=== PATIENT | female | born 1950 | race Caucasian/White ===

== ENCOUNTER → 2023-08-06 08:39 | Outpatient (REF) | payer MEDICARE, OTHER, SELFPAY | LOC: HWRAD 08:39 | PROVIDERS: ATTENDING PHYSICIAN Obstetrics & Gynecology; FAMILY PHYSICIAN Family Medicine; REFERRING PHYSICIAN Anesthesiology Pain Medicine | DX: Z78.0 Asymptomatic menopausal state (principal); Z12.31 Encounter for screening mammogram for malignant neoplasm of breast | CPT/HCPCS: 77063; 77067; 77080 ==

== ENCOUNTER 2023-10-04 15:45 | Emergency (ER) | payer MEDICARE, OTHER, SELFPAY ==
[2023-10-04 15:54] VITALS: BP 148/95
[2023-10-04 16:17] LABS: % Basophils 0.9 % (0-2); % Eosinophils 4.1 % (0-6); % Immature Granulocytes 0.5 % (0-0.5); % Lymphocytes 23.4 % (20.5-51.1); % Monocytes 6.3 % (1.7-9.3); % Neutrophils 64.8 % (42.2-75.2); Absolute Basophils 0.1 10^3/uL (0-0.2); Absolute Eosinophils 0.3 10^3/uL (0-0.7); Absolute Lymphocytes 1.9 10^3/uL (1.2-3.4); Absolute Monocytes 0.5 10^3/uL (0.1-0.6); Absolute Neutrophils 5.2 10^3/uL (1.4-6.5); Hematocrit 39.8 % (37.0-47.0); Hemoglobin 13.1 g/dL (12.0-16.0); Mean Corp Hgb Conc. 32.9 g/dL (33.0-37.0); Mean Corpuscular Hgb 29.6 pg (27.0-31.0); Mean Corpuscular Volume 89.8 fL (81.0-99.0); Mean Platelet Volume 9.5 fL (7.4-10.4); Nucleated Red Blood Cells % 0 %; Platelet Count 247 10^3/uL (130-400); Red Blood Cell Count 4.43 10^6/uL (4.20-5.40); Red Cell Dist. Width 13.5 % (11.5-14.5)
[2023-10-04 16:41] LABS: Troponin I < 0.012 ng/ml
[2023-10-04 16:44] LABS: ALT (SGPT) 42 U/L (0-35); AST (SGOT) 32 U/L (14-36); Albumin 4.1 g/dl (3.5-5.0); Alkaline Phosphatase 97 U/L (38-126); Blood Urea Nitrogen 19 mg/dl (7-17); Carbon Dioxide 24 mmol/L (22-30); Chloride 108 mmol/L (98-107); Glucose 104 mg/dl (70-99); Potassium 4.8 mmol/L (3.5-5.1); Sodium 136 mmol/L (135-145); Total Bilirubin 0.3 mg/dl (0.2-1.3); Total Protein 6.6 g/dl (6.3-8.2); eGFR 59.49
[2023-10-04 19:03] LABS: NT-proBNP 143 pg/ml
--- NOTE | 2023-10-04 19:16 | ED.GENMED ---
History of Present Illness
General
Chief Complaint: Weakness
Source: patient, spouse and family
Exam Limitations: none
Time Seen by Provider: 10/04/23 18:14
Nursing documentation reviewed up to this point in time: agreed with
Travel History
Have you had any contact with someone who has COVID-19?: No
Do you have any symptoms of coronavirus? Fever > 100 degrees, chills, cough, shortness of breath, sore throat, loss of taste or smell, muscle aches, or headache?: No
History of Present Illness
History of Present Illness:
73-year-old female with past ministry of hypertension hyperlipidemia, frequent urinary tract infections spinal stimulator implant 6 weeks ago presenting to the emergency department today with concerns of generalized weakness fatigue mainly with
exertion over the past 6 weeks. She claims that after walking roughly 100 m she has to take a rest secondary to generalized weakness. She denies any specific focal numbness or weakness chest pain shortness breath palpitations or recent illness.
No changes in medications.
Review of Systems
Review of Systems
Allergies reviewed?: Yes
All Other Systems: ROS reviewed and negative except as documented in HPI and ROS
Phy Exam
Physical Exam
Physical Exam:
GENERAL: Alert , in no apparent distress
EYE: pupils equal and reactive
NECK: Supple, no significant adenopathy.
ENT: o/p clr, mmm.
CARDIAC: Regular rate and rhythm .
LUNGS: Clear breath sounds bilaterally, no acute respiratory distress, no wheezes/rales/rhonchi
ABDOMEN: Soft, without focal tenderness, no r/g, no cvat
NEUROLOGICAL: Alert and oriented, no focal neuro deficits
SKIN: Warm and dry, skin intact.
MUSCULOSKELETAL: No edema, well perfused.
PSYCH: Normal and appropriate interaction.
Course
Orders/Labs/Results
Orders:
Orders
10/04/23 15:58
Electrocardiogram (*1) Urgent
Reason for Study: Fatigue / Weakness
EKG- Treatment ONCE
10/04/23 16:04
Comprehensive Metabolic Panel Urgent
NT-proBNP Urgent
Comment: ADD ON
TSH Reflex To Free T4 Urgent
Comment: ADD ON
Troponin I Urgent
10/04/23 16:05
Complete Blood Count/With Diff Urgent
10/04/23 18:18
Add On- LAB Urgent
Tests Added?: BNP
10/04/23 19:00
Add On- LAB Urgent
Tests Added?: tsh free t4
10/04/23 19:13
Urinalysis Reflex To Culture Urgent
Date Specimen was Collected: 10/04/23
Time Specimen was Collected: 19:11
Abnormal Lab Results
10/04/23 10/04/23
16:04 16:05
MCHC 32.9 L g/dL
(33.0-37.0)
Chloride 108 H mmol/L
(98-107)
BUN 19 H mg/dl
(7-17)
Glucose 104 H mg/dl
(70-99)
ALT 42 H U/L
(0-35)
10/04/23 16:05
10/04/23 16:04
Vital Signs
Initial and Last Documented VS:
Initial Vital Signs
Temp Pulse Resp BP Pulse Ox
98.1 F 75 18 148/95 95
10/04/23 15:54 10/04/23 15:54 10/04/23 15:54 10/04/23 15:54 10/04/23 15:54
Last Documented Vital Signs
Temp Pulse Resp BP Pulse Ox
98.1 F 70 20 138/71 96
10/04/23 15:54 10/04/23 19:39 10/04/23 19:39 10/04/23 19:39 10/04/23 19:39
MDM/Problems Addressed
MDM/Problems Addressed:
73-year-old female past medical history hypertension hyperlipidemia. Here patient is very well-appearing in no distress very slightly elevated blood pressure otherwise vital signs are normal. Patient with clear lungs normal heart sounds labs
without emergent findings troponin negative EKG normal BNP negative no leg swelling normal urinalysis. No specific explanation for patient's fatigue. Patient vies for close cardiac evaluation concerning she had does have some degree of dyspnea on
exertion. Strict return precautions were discussed.
*Critical Care Note
Total Time (30-74mins, 75-104mins- exclusive of procedures): Not Applicable
ED Attending Note
-
Portions of this chart may have been created with voice recognition software.� Occasional wrong word or��sound alike� substitutions may have occurred due to the inherent limitations of voice recognition software.
Discharge Plan
Departure
Patient Disposition: Home (Routine Discharge)
Date of Disposition: 10/04/23
Time of Disposition: 21:05
Patient with high blood pressure during this ER visit?: No
Condition: Good
Covid-19: Not Applicable
Discharge Problem:
Generalized weakness
Instructions: Generalized Weakness (DC), *CBC Heart Failure Instructions
Referrals:
Nj Sandra MD [Family Provider] -
Activity Restrictions/Additional Instructions:
You came to the emergency department today with concerns of generalized weakness fatigue. Here your vital signs were normal your workup was very reassuring you had a normal cardiac evaluation normal urinalysis. It is very important follow-up
closely with cardiology. Return to the emergency department for any worsening, new or concerning symptoms.
Interventions
Interventions:
ED- Fall Risk Assessment Last Done: 10/04/23 19:21
*ED COVID-19 Vaccine History Last Done: 10/04/23 15:57
ED- Cardiac Assessment Last Done: 10/04/23 19:21
ED- Neurological Assessment Last Done: 10/04/23 19:21
ED- Pulmonary Assessment Last Done: 10/04/23 19:21
Discharge Date and Time
Print Language: FRENCH
[2023-10-04 19:39] VITALS: BP 138/71
[2023-10-04 20:02] LABS: Urine Albumin Negative (Neg - Trace); Urine Bilirubin Negative (Negative); Urine Character Clear (Clear); Urine Color Yellow; Urine Glucose Negative (Negative); Urine Ketone Negative (Negative); Urine Leukocyte Negative (Negative); Urine Nitrite Negative (Negative); Urine Occult Blood Negative (Negative); Urine Urobilinogen Negative (Neg - 1+)
[2023-10-04 20:06] LABS: TSH Reflex To Free T4 1.94 uIU/ml (0.47-4.68)
[2023-10-04 21:13] VITALS: BP 128/85
== END 2023-10-04 21:14 | disposition home or self-care (01) ==
LOC: EMR 15:45
PROVIDERS: Emergency Medicine; Physician Assistant; EMERGENCY PHYSICIAN Student in an Organized Health Care Education/Training Program; FAMILY PHYSICIAN Family Medicine
DX: I10 Essential (primary) hypertension (principal); E78.5 Hyperlipidemia, unspecified; Z87.440 Personal history of urinary (tract) infections; R53.1 Weakness
CPT/HCPCS: 99284; 80053; 81003; 83880; 84443; 84484; 85025; 93005

== ENCOUNTER 2023-10-15 08:40 | Day surgery (SDC) | payer MEDICARE, OTHER, SELFPAY ==
[2023-10-15] VITALS (16 sets, daily range): BP systolic 88–135; BP diastolic 53–85; BMI 33.7
[2023-10-15] MEDS: NSS 259 ML IV (10:01)
[2023-10-15] MEDS: LOW STRENGTH ASPIRIN 81 MG PO (10:14)
--- NOTE | 2023-10-15 11:37 | ITS.CL.CATH ---
[facility] - Catheterization
Cardiac Catheterization
Procedure Report:
CARDIAC CATHETERIZATION REPORT
Date of Procedure: 10/15/2019
Referring: MIS Gomez
Indication: Shortness of breath, chest pressure.
PROCEDURE:
1. Right heart catheterization.
2. Left heart catheterization.
3. Coronary angiography.
ACCESS:
6 Scottish right radial artery.
5 Scottish right antecubital vein.
CATHETERS:
1. 5 Scottish balloon wedge.
2. 5 Scottish JL 3.5.
3. 5 Scottish JR4.
HEMODYNAMIC DATA
Weight (kg): 86.3
AO (s/d/x mmHg): 123/71/90
LV (s/x mmHg): 127/16
PCWP (a/v/x mmHg): 33//19
PA (s/d/x mmHg): 35//
RV (s/x mmHg): 35/14
RA (a/v/x mmHg): 16/14
SVC SvO2 (%): 71.2
PA SvO2 (%): 73.1
SaO2 (%): 97.1
Hbg (g/dL): 13.9
CO (L/min): 3.53
CI (L/min/m2): 1.86
TPG (mmHg): 4
PVR (Morillo Units): 1.13
SVR (dynes*seconds*cm^-5): 1722
AVO2 Diff (Volume %): 4.54
AV gradient (x, mmHg): None.
AV area (cm2): Normal.
LEFT VENTRICULOGRAPHY: Not obtained.
CORONARY ANGIOGRAPHY
Dominance: Right.
Left Main: Normal size, bifurcating vessel. There is no coronary artery disease.
LAD: Normal size vessel giving rise to 2 significant diagonals. There are minor luminal irregularities in the proximal vessel.
Ramus: Congenitally absent.
Circumflex: Normal size vessel giving rise to 2 obtuse marginals. There is no coronary artery disease.
RCA: Normal size, dominant vessel. There is no coronary artery disease.
INTERVENTIONS
None.
Closure Device: Vascular band for the right radial artery, manual pressure for the right antecubital vein.
Radiation dose (mGy): 220.52
DAP (cm2.Gy): 22.5464
Fluoroscopy time (minutes): 4.7
Sedation time (minutes): 31
CONCLUSIONS:
1. Right dominant circulation with minor luminal irregularities in the proximal LAD.
2. Mildly elevated filling pressures (LVEDP = 16 mmHg, PCWP = 19 mmHg at 86.3 kg).
3. Mildly depressed cardiac index (1.86 L/min/m�) with preserved AV O2 difference (4.54 volume %).
RECOMMENDATIONS:
1. Expectant management after cardiac catheterization via right radial/antecubital approach.
2. Limited weight bearing on the right wrist for one week.
3. Start furosemide 20 mg p.o. daily for mild filling pressure elevation.
4. Consider other possibilities for shortness of breath including primary pulmonary disease.
5. Stable for outpatient cardiology follow-up.
Copy to: MIS Gomez, Waldemar Chahal M.D., Ph.D., Nj Sandra M.D.
Randal Major DO, FACC, FACP
[2023-10-15] MEDS: LASIX 20 MG IV (11:48)
== END 2023-10-15 14:47 | disposition home or self-care (01) ==
LOC: CATH 08:40
PROVIDERS: ATTENDING PHYSICIAN Internal Medicine Cardiovascular Disease; FAMILY PHYSICIAN Family Medicine; OTHER PHYSICIAN Internal Medicine
DX: R06.02 Shortness of breath (principal); R07.89 Other chest pain; Z79.82 Long term (current) use of aspirin; I10 Essential (primary) hypertension; I48.0 Paroxysmal atrial fibrillation
CPT/HCPCS: 93460; C1894; Q9967

== ENCOUNTER → 2023-11-27 09:44 | Outpatient (REF) | payer MEDICARE, OTHER, SELFPAY | LOC: HWRAD 09:44 | PROVIDERS: ATTENDING PHYSICIAN Nurse Practitioner; FAMILY PHYSICIAN Family Medicine; REFERRING PHYSICIAN Internal Medicine Critical Care Medicine | DX: R35.0 Frequency of micturition (principal); R31.0 Gross hematuria; R06.09 Other forms of dyspnea | CPT/HCPCS: 71046; 76770; 76856 ==

== ENCOUNTER → 2024-04-28 11:43 | Outpatient (REF) | payer MEDICARE, OTHER, SELFPAY | LOC: HWRAD 11:43 | PROVIDERS: ATTENDING PHYSICIAN Internal Medicine Rheumatology; FAMILY PHYSICIAN Family Medicine; REFERRING PHYSICIAN Anesthesiology Pain Medicine | DX: M54.50 Low back pain, unspecified (principal); M81.0 Age-related osteoporosis without current pathological fracture | CPT/HCPCS: 72070 ==

== ENCOUNTER 2024-04-30 13:16 | Emergency (ER) | payer MEDICARE, OTHER, SELFPAY ==
[2024-04-30 13:19] VITALS: BP 118/75; BMI 31.7
[2024-04-30 13:21] VITALS: BP 118/75
--- NOTE | 2024-04-30 13:25 | ED.GENMED ---
History of Present Illness
<Zulema Pearson PA-C - Last Filed: 04/30/24 18:28>
General
Chief Complaint: Fainting Sensation
Source: patient
Exam Limitations: none
Time Seen by Provider: 04/30/24 13:24
Nursing documentation reviewed up to this point in time: agreed with
History of Present Illness
History of Present Illness:
74-year-old female with a past medical history of hypertension, hyperlipidemia, presents to the emergency department today with concerns of presyncopal episode. Patient reports that she went to [place] today after a doctor's appointment and was
eating breakfast when she felt the sudden urge to have diarrhea. She felt some mild lower abdominal pain at this time. She also started to feel lightheaded, dizzy, and hot. She ran to the bathroom and states that she does not have diarrhea at
that time but felt that she might pass out. She remained sitting in the bathroom and eventually her symptoms passed, this episode lasted around 1 minute. She had was another episode at home which she did have diarrhea at the time. She notes that
she has been having intermittent bouts of explosive diarrhea and is been seeing Dr. Norris from gastroenterology for this. Patient did not fall or hit her head. She currently is asymptomatic and denies dizziness, lightheadedness, headaches,
shortness of breath, chest pain. Patient denies palpitations. Patient denies history of cardiac disease other than sinus tach patient currently takes lisinopril and metoprolol for her blood pressure and follows with Dr. Chahal. Patient reports that
she has been doing intermittent fasting loss weight recently and believes that she may be on too many blood pressure medications.
Review of Systems
<Zulema Pearson PA-C - Last Filed: 04/30/24 18:28>
Review of Systems
All Other Systems: ROS reviewed and negative except as documented in HPI and ROS
Phy Exam
<Zulema Pearson PA-C - Last Filed: 04/30/24 18:28>
Physical Exam
Physical Exam:
General: Patient is well appearing and in no acute distress; non-toxic
Skin: Warm and dry, no rashes or lesions
Head: Normocephalic, atraumatic
Eyes: Sclera non-icteric. EOMs intact. PERRLA.
Cardiac: Regular rate and rhythm, no murmurs
Peripheral Vascular: No lower extremity swelling or edema
Pulm: Normal respiratory effort, no wheezes, rales, or rhonchi
Abdomen: No abdominal tenderness to palpation
Neuro: CN II-XII intact, no focal neurologic deficits.
Psychiatric: Appropriate mood and affect.
Course
<Zulema Pearson PA-C - Last Filed: 04/30/24 18:28>
Orders/Labs/Results
Orders:
Orders
04/30/24 13:17
Electrocardiogram (*1) Urgent
Reason for Study: Syncope
04/30/24 13:18
EKG- Treatment ONCE
04/30/24 13:26
Basic Metabolic Panel Urgent
Complete Blood Count/With Diff Urgent
Troponin I Urgent
04/30/24 14:03
D-Dimer Urgent
04/30/24 14:43
CT Chest Pe Study Urgent
Comment:
Reason For Exam: syncope
Abnormal Lab Results
04/30/24 04/30/24
13:26 14:03
WBC 13.3 H 10^3/uL
(4.8-10.8)
Abs Immat Gran (auto) 0.1 H 10^3/uL
(0-0.05)
Absolute Neuts (auto) 11.1 H 10^3/uL
(1.4-6.5)
Immature Gran % 0.6 H %
(0-0.5)
Neutrophils % 83.4 H %
(42.2-75.2)
Lymphocytes % 11.4 L %
(20.5-51.1)
D-Dimer 2.78 H ug/mlFEU
(0.00-0.50)
Chloride 108 H mmol/L
(98-107)
Carbon Dioxide 21 L mmol/L
(22-30)
Glucose 141 H mg/dl
(70-99)
04/30/24 13:26
04/30/24 13:26
Vital Signs
Initial and Last Documented VS:
Initial Vital Signs
Temp Pulse Resp BP Pulse Ox
98.1 F 77 15 118/75 98
04/30/24 13:19 04/30/24 13:19 04/30/24 13:19 04/30/24 13:19 04/30/24 13:19
Last Documented Vital Signs
Temp Pulse Resp BP Pulse Ox
98.1 F 72 22 121/68 97
04/30/24 13:19 04/30/24 17:30 04/30/24 17:30 04/30/24 17:10 04/30/24 17:30
<Ruddy Son MD - Last Filed: 04/30/24 15:10>
Orders/Labs/Results
Orders:
Orders
04/30/24 13:17
Electrocardiogram (*1) Urgent
Reason for Study: Syncope
04/30/24 13:18
EKG- Treatment ONCE
04/30/24 13:26
Basic Metabolic Panel Urgent
Complete Blood Count/With Diff Urgent
Troponin I Urgent
04/30/24 14:03
D-Dimer Urgent
04/30/24 14:43
CT Chest Pe Study Urgent
Comment:
Reason For Exam: syncope
Abnormal Lab Results
04/30/24 04/30/24
13:26 14:03
WBC 13.3 H 10^3/uL
(4.8-10.8)
Abs Immat Gran (auto) 0.1 H 10^3/uL
(0-0.05)
Absolute Neuts (auto) 11.1 H 10^3/uL
(1.4-6.5)
Immature Gran % 0.6 H %
(0-0.5)
Neutrophils % 83.4 H %
(42.2-75.2)
Lymphocytes % 11.4 L %
(20.5-51.1)
D-Dimer 2.78 H ug/mlFEU
(0.00-0.50)
Chloride 108 H mmol/L
(98-107)
Carbon Dioxide 21 L mmol/L
(22-30)
Glucose 141 H mg/dl
(70-99)
04/30/24 13:26
04/30/24 13:26
Vital Signs
Initial and Last Documented VS:
Initial Vital Signs
Temp Pulse Resp BP Pulse Ox
98.1 F 77 15 118/75 98
04/30/24 13:19 04/30/24 13:19 04/30/24 13:19 04/30/24 13:19 04/30/24 13:19
Last Documented Vital Signs
Temp Pulse Resp BP Pulse Ox
98.1 F 72 22 121/68 97
04/30/24 13:19 04/30/24 17:30 04/30/24 17:30 04/30/24 17:10 04/30/24 17:30
Sharynlt;Zulema Pearson PA-C - Last Filed: 04/30/24 18:28>
MDM/Problems Addressed
Differential Diagnosis Includes:
Vasovagal syncope, arrhythmia, PE, medication side effect
MDM/Problems Addressed:
74-year-old female with past medical history of hypertension, hyperlipidemia presents to the emergency department today with concerns of 2 presyncopal episodes. Each episode lasted around 1 minute and was associated with urge to defecate. Currently,
she is asymptomatic. Of note, she takes both metoprolol and lisinopril and has lost weight recently they are intermittent fasting and feels that she may be on too many medications now that she lost weight. Patient is currently asymptomatic.
Physical exam, she is well-appearing, afebrile, no acute distress, her lungs are clear to auscultation. Her CBC is here appear unremarkable. Of note, patient had recent cardiac cath persistent shortness of breath she had a few months ago and it
was suggested to explore other causes of this such as PE. Because of this, we did add on a D-dimer which was elevated, patient was sent for CT of the chest which is negative for PE, likely represents vasovagal presyncope, advised patient to
follow-up with her docent coordinator for possible medication adjustment. Patient stable for discharge.
Chronic conditions affecting care:
hypertension, hyperlipidemia
<Zulema Pearson PA-C - Last Filed: 04/30/24 18:28>
*Pulse Oximetry
Patient hypoxic: no
*Critical Care Note
Total Time (30-74mins, 75-104mins- exclusive of procedures): Not Applicable
Data Reviewed
Review of Other/Old Records Reveals: Records (Reviewed discharge packet and summary from Nutrition Worker report of 10/15/2023, reviewed ER physician documentation from 10/04/2023)
Source: patient and records
Prescriptions/Medications Considered But Not Given:
n/a
Further Testing Considered But Not Given:
n/a
<Zulema Pearson PA-C - Last Filed: 04/30/24 18:28>
Patient Management
Escalation/DeEscalation of care consider admission/obs:
Admit not indicated, patient stable for discharge, patient persistently asymptomatic and vital signs remained stable throughout ED stay
<Zulema Pearson PA-C - Last Filed: 04/30/24 18:28>
Update Note
Update Note:
3:35 pm-- Update patient reports that she ambulated to the bathroom without any difficultly, still asymptomatic; patient updated on d-dimer results, pt awaiting CT scan.
ED Attending Note
<Zulema Pearson PA-C - Last Filed: 04/30/24 18:28>
-
Portions of this chart may have been created with voice recognition software.� Occasional wrong word or��sound alike� substitutions may have occurred due to the inherent limitations of voice recognition software.
<Ruddy Son MD - Last Filed: 04/30/24 15:10>
ED Attending Note
Patient seen and examined by attending physician: Yes
ED Attending Note:
I have seen and evaluated the patient with a [id number] encounter. I have spoken to the advance practicer provider and involved in the medical history, the physical exam, medical decision making.
Evaluation and management service: agree unless noted differently below.
Results interpretation: agree unless noted differently below.
Focused HPI: 74-year-old female with past medical history as noted presents to the ER for evaluation after syncopal event. Patient reports that for the past few months that she has been having episodes of urgent tenesmus associated with diarrhea;
has been following with Dr. Norris. Patient that this morning she was sitting on the couch when she suddenly felt that she had the urge to have a bowel movement. She went to the bathroom and when she got to the bathroom she began feeling
lightheaded and nauseous, sweaty. She says that she had brief loss of consciousness. She did not actually have a bowel movement at that time but then about an hour later she did have a large volume bowel movement. She called her primary and made
an appointment to be evaluated and had visit in the office; she was told she likely had a vasovagal episode. After the doctor's appointment she went to lunch at [employer] and while she was in the middle of eating she began to feel the urge to go to
the bathroom once again and this time was quickly associated with lightheaded sensation. Her helped her to get up and go to the bathroom and when she got to the door the bathroom she felt extremely lightheaded and passed out.
caught her and she did not have any fall or secondary trauma. EMS called to the scene. Apparently on EMS arrival she was mildly hypotensive to 81/65 but after some fluids this normalized. She now feels fine she has no symptoms here in the ER.
She denies any associated chest pain, palpitations. She has had some occasional shortness of breath particularly when walking up the stairs or going for a short walk�this has been going on for the past few months and in fact led to a cardiac
catheterization in September that was essentially unremarkable. She has no shortness of breath at present moment in the ER. She denies any abdominal pain or flank pain. She denies any headache. She denies any other complaints.
Physical exam: Awake alert not in distress. Vital signs normal. No cardiac rubs gallops or murmurs appreciated. Lungs clear to auscultation bilaterally. Abdomen soft and nontender with no palpable masses. No gross neurologic deficits. Head is
atraumatic.
Medical Decision Makin-year-old female presents to the emergency room after syncopal event; had 2 episodes this morning each 1 was associated with defecation/bowel movement. Vitals and exam as above. Will check labs including a CBC and a CMP.
EKG reviewed shows sinus rhythm with no AV block, no Brugada, no QT prolongation. Will check a D-dimer given her dyspnea over the past few months and now 2 episodes of syncope. Will monitor on telemetry reassess after the above; certainly by
history this sounds like vasovagal syncope associate with her bowel movements.
Labs reviewed: CBC shows slight leukocytosis at 13 unclear acute clinical significance; no signs or symptoms of infection. CMP no clinically significant abnormalities. Troponin undetectable. Her D-dimer was slightly positive will send for CTA to
rule out PE. Continue to monitor.
Discharge Plan
Departure
Patient Disposition: Home (Routine Discharge)
Date of Disposition: 04/30/24
Time of Disposition: 17:32
Patient with high blood pressure during this ER visit?: No
Condition: Good
Discharge Problem:
Pre-syncope
Instructions: Near Fainting (DC), Diarrhea, Adult ED
Prescriptions:
No Action
metoprolol succinate 25 mg Tablet Extended Release 24 Hr
25 mg PO DAILY
aspirin 81 mg Tablet,Chewable
81 mg PO DAILY
buspirone 7.5 mg Tablet
7.5 mg PO BID
topiramate 25 mg Tablet
25 mg PO BID
Sleep Aid (doxylamine) 25 mg Tablet
25 mg PO HS
lisinopril 5 mg Tablet
5 mg PO HS
rosuvastatin 20 mg Tablet
20 mg PO MOTUTHFR
cholecalciferol (vitamin D3) [Vitamin D3] 25 mcg (1,000 unit) Tablet
25 mcg PO DAILY
cyanocobalamin (vitamin B-12) [Vitamin B-12] 100 mcg Tablet
100 mcg PO DAILY
furosemide 20 mg tablet
20 mg PO DAILY Qty: 90 3RF
estradiol 0.01 % (0.1 mg/gram) Cream
1 g VAGINAL .2-3XWEEKLY
Patient Comments:
04/30/24: Patient has no set schedule, tries to do it 2-3 times a week.
loperamide [Imodium A-D] 1 mg/7.5 mL Liquid
4 mg PO DAILYPRN PRN (Reason: diarrhea)
Referrals:
Nj Sandra MD [Family Provider] -
Activity Restrictions/Additional Instructions:
Your d-dimer today was 2.78 (elevated) but your CT scan did not show any evidence of blood clot in the lung.
Please follow up with your docent coordinator.
Please return to the emergency department should you experience chest pain, shortness of breath, further syncopal episodes, nausea and vomiting, fevers or chills, weakness on one side of the body vs the other, difficulty speaking, difficulty
ambulating, or any other signs or symptoms concerning to you.
Interventions
Interventions:
*Risk Screen - Suicide Last Done: 04/30/24 13:19
*General Assessment Last Done: 04/30/24 13:19
*Neglect/Abuse Screening Last Done: 04/30/24 13:19
ED- Fall Risk Assessment Last Done: 04/30/24 13:30
*ED COVID-19 Vaccine History Last Done: 04/30/24 13:19
*Nursing Disposition Last Done: 04/30/24 17:53
ED- Cardiac Assessment Last Done: 04/30/24 13:30
ED- Neurological Assessment Last Done: 04/30/24 13:30
Discharge Date and Time
Discharge Date/Time: 04/30/24 17:53
Print Language: EQUATORIAL GUINEAN
[2024-04-30 13:35] LABS: % Basophils 0.4 % (0-2); % Eosinophils 0.8 % (0-6); % Immature Granulocytes 0.6 % (0-0.5); % Lymphocytes 11.4 % (20.5-51.1); % Monocytes 3.4 % (1.7-9.3); % Neutrophils 83.4 % (42.2-75.2); Absolute Basophils 0.1 10^3/uL (0-0.2); Absolute Eosinophils 0.1 10^3/uL (0-0.7); Absolute Immature Granulocytes 0.1 10^3/uL (0-0.05); Absolute Lymphocytes 1.5 10^3/uL (1.2-3.4); Absolute Monocytes 0.5 10^3/uL (0.1-0.6); Absolute Neutrophils 11.1 10^3/uL (1.4-6.5); Hematocrit 42.6 % (37.0-47.0); Hemoglobin 14.6 g/dL (12.0-16.0); Mean Corp Hgb Conc. 34.3 g/dL (33.0-37.0); Mean Corpuscular Hgb 30.5 pg (27.0-31.0); Mean Corpuscular Volume 88.9 fL (81.0-99.0); Mean Platelet Volume 9.3 fL (7.4-10.4); Nucleated Red Blood Cells % 0 %; Platelet Count 225 10^3/uL (130-400); Red Blood Cell Count 4.79 10^6/uL (4.20-5.40); Red Cell Dist. Width 13.2 % (11.5-14.5); White Blood Cell Count 13.3 10^3/uL (4.8-10.8)
[2024-04-30 13:51] LABS: Blood Urea Nitrogen 17 mg/dl (7-17); Calcium 9.8 mg/dl (8.4-10.2); Carbon Dioxide 21 mmol/L (22-30); Chloride 108 mmol/L (98-107); Estimated Creatinine Clearance 50 ml/min; Glucose 141 mg/dl (70-99); Sodium 142 mmol/L (135-145); eGFR 59.12
[2024-04-30 14:00] VITALS: BP 108/65
[2024-04-30 14:00] LABS: Troponin I < 0.012 ng/ml
[2024-04-30 14:30] LABS: D-Dimer 2.78 ug/mlFEU (0.00-0.50)
[2024-04-30 15:00] VITALS: BP 105/59
[2024-04-30 16:00] VITALS: BP 111/73
[2024-04-30 17:10] VITALS: BP 121/68
== END 2024-04-30 17:53 | disposition home or self-care (01) ==
LOC: EMR 13:16
PROVIDERS: Physician Assistant; Student in an Organized Health Care Education/Training Program; EMERGENCY PHYSICIAN Emergency Medicine; FAMILY PHYSICIAN Family Medicine
DX: R55 Syncope and collapse (principal); I10 Essential (primary) hypertension; E78.00 Pure hypercholesterolemia, unspecified
CPT/HCPCS: 99284; 71275; 80048; 84484; 85025; 85379; 93005; Q9967

== ENCOUNTER → 2024-09-05 12:26 | Outpatient (REF) | payer MEDICARE, OTHER, SELFPAY | LOC: HWRAD 12:26 | PROVIDERS: ATTENDING PHYSICIAN Anesthesiology Pain Medicine; FAMILY PHYSICIAN Family Medicine | DX: M25.552 Pain in left hip (principal); M16.12 Unilateral primary osteoarthritis, left hip | CPT/HCPCS: 73502 ==

== ENCOUNTER → 2024-10-29 11:39 | Outpatient (REF) | payer MEDICARE, OTHER, SELFPAY | LOC: HWRAD 11:39 | PROVIDERS: ATTENDING PHYSICIAN Student in an Organized Health Care Education/Training Program | DX: M54.50 Low back pain, unspecified (principal); G89.29 Other chronic pain; R19.7 Diarrhea, unspecified | CPT/HCPCS: 72110 ==

== ENCOUNTER → 2024-12-04 10:14 | Outpatient (REF) | payer MEDICARE, OTHER, SELFPAY | LOC: HWWDC 10:14 | PROVIDERS: ATTENDING PHYSICIAN Obstetrics & Gynecology; FAMILY PHYSICIAN Family Medicine | DX: Z12.31 Encounter for screening mammogram for malignant neoplasm of breast (principal) | CPT/HCPCS: 77063; 77067 ==

== ENCOUNTER 2025-04-04 09:37 | Inpatient (IN) | payer MEDICARE, OTHER, SELFPAY ==
[2025-04-04] VITALS (13 sets, daily range): BP systolic 84–130; BP diastolic 58–92; BMI 29.2; BMI 29.5
--- NOTE | 2025-04-04 07:21 | ED.GENMED ---
History of Present Illness
General
Chief Complaint: Chest Pain
Source: patient, records and ambulance crew
Exam Limitations: none
Time Seen by Provider: 04/04/25 07:07
Nursing documentation reviewed up to this point in time: agreed with
History of Present Illness
History of Present Illness:
75-year-old female via EMS, 3 to 4 days nausea vomiting diarrhea unable to tolerate much food, is able to take her meds, no fevers, developed some crampy upper abdominal pain into her chest this morning EMS was called and found her to be hypotensive
rapid A-fib I received a call for medical command suggested IV fluids no rate control at this point, no prior abdominal surgeries, no foreign travel no recent antibiotic use she is companied by her spouse she has hypertension previous cardiac cath
with mildly elevated filling pressures no significant CAD
Past History
Past History
ED Past Medical History: CHF and HTN; Negative Arrthythmia or CAD
Social History
Tobacco: Non-smoker
Alcohol: None
Drug: None
Personal:
Living: with family
Employment: Retired
Review of Systems
Review of Systems
All Other Systems: Not applicable
Phy Exam
Physical Exam
Physical Exam:
Physical Exam
General: no apparent distress, not acutely ill
Neck: Dry lips
Heart: Tachycardic
Lungs: no acute respiratory distress. clear bilaterally
Abdomen: Not tender
Neuro: alert and oriented. no focal neurological deficits
Skin: no rash
Psychiatric: well kept. interactive and cooperative
Extremities: no edema. no calf tenderness.
Scores
Heart Score for Chest Pain Patients
STEMI patient?: No
History: Slightly or Non-Suspicious
ECG: Normal
Age: >/= 65 years
Risk Factors: No Risk Factors
Troponin: </= Normal Limit
Heart Score for Chest Pain Patients: 2
Heart Score Risk: 2.5% MACE over next 6 weeks
Course
Orders/Labs/Results
Orders:
Orders
04/04/25 07:08
Electrocardiogram (*1) Urgent
Reason for Study: Chest Pain
CR Chest - 2 Views Urgent
Comment:
Reason For Exam: chest pain with SOB
04/04/25 07:09
EKG- Treatment ONCE
04/04/25 07:11
COVID-19 Antigen Urgent
Source: Nasal Swab
Complete Blood Count/With Diff Urgent
Comprehensive Metabolic Panel Urgent
Lipase Urgent
Comment: ADD ON
Magnesium Urgent
NT-proBNP Urgent
Comment: ADD ON
Troponin I Urgent
Influenza A+B Rapid Molecular Urgent
SHARMILA Source: Nasal Swab
Specimen Description:
04/04/25 07:15
Add On- LAB Urgent
Tests Added?: Pro-BNP
04/04/25 07:36
Add On- LAB Urgent
Tests Added?: lipase
0.9% Sodium Chloride 1000 ml [Nss] 1,000 ml IV BOLUS
Ondansetron Injectable [Zofran] 4 mg IV NOW STA
Pantoprazole [Protonix IV] 40 mg IV NOW STA
04/04/25 07:37
Add On- LAB Urgent
Tests Added?: magnesium
04/04/25 08:26
Diltiazem HCl [Cardizem] 10 mg IV NOW STA
04/04/25 08:30
Diltiazem 125 mg/125 ml Nss [Cardizem] 125 mg in 125 ml IV PER PROTOCOL
Initial dose in mg/hr, then titrate:: 5
Titrate to keep:: Heart rate 80-100 bpm
Titrate by mg/hr:: 5 mg/hr
Frequency of titrations (minutes):: 15
Maximum dose in mg/hr:: 15
04/04/25 08:46
Potassium Chloride [KCl] 40 meq 0.9% Sodium Chloride 250 ml [Nss] 250 ml IV NOW
04/04/25 09:21
Admit/Transfer Patient As Directed
Co-Sign Provider:
Level of Care: Inpatient admission
Assign to:: IVU
Physician / Group: Dr Hernandez
Diagnosis: A fib
Reason for Hospitalization: A fib RVR
Expected length of stay greater than two midnights?: Yes
ELOS- Estimated Length of Stay in days: 2
I certify the patient meets the requirements for IP care: Yes
Code Status As Directed
Resuscitation Status: Full Code
PRN Pain Medication Management As Directed
May give lesser potent ordered pain med per pt: Yes
preference::
Protocol:: Medication orders for pain may be administered in a
manner that supports deferring to patient preference
when the pt is:
- Requesting an ordered lesser potent pain medication.
Least to most potent pain medications are defined
as: acetaminophen < NSAID < tramadol < opioids
(morphine, oxycodone, hydromorphone).
- Requesting a lesser dose of the same medication IF
ORDERED.
- Requesting a less intrusive route of administration
if both routes are prescribed by the provider (PO <
IV).
04/04/25 09:22
CARDIOLOGY CONSULT Routine
Consulting Provider: Jacquelyn Hdz
Was physician already notified: Yes
Reason for consult: a fib
Abnormal Lab Results
04/04/25
07:11
Absolute Neuts (auto) 8.7 H 10^3/uL
(1.4-6.5)
Absolute Lymphs (auto) 0.4 L 10^3/uL
(1.2-3.4)
Neutrophils % 87.9 H %
(42.2-75.2)
Lymphocytes % 4.4 L %
(20.5-51.1)
Chloride 108 H mmol/L
(98-107)
Carbon Dioxide 20 L mmol/L
(22-30)
Creatinine 1.1 H mg/dL
(0.6-1.0)
Glucose 124 H mg/dl
(70-99)
AST 169 H U/L
(14-36)
ALT 129 H U/L
(0-35)
Total Protein 6.1 L g/dl
(6.3-8.2)
04/04/25 07:11
04/04/25 07:11
Vital Signs
Initial and Last Documented VS:
Initial Vital Signs
Pulse Ox
96
04/04/25 07:09
Last Documented Vital Signs
Temp Pulse Resp BP Pulse Ox
98.6 F 108 20 94/74 97
04/04/25 12:14 04/04/25 12:14 04/04/25 12:14 04/04/25 12:14 04/04/25 12:14
MDM/Problems Addressed
Differential Diagnosis Includes:
AF SVT dehydration occult infection febrile illness electrolyte biliary colic less likely ACS conceivably be pancreatitis
MDM/Problems Addressed:
Fatigue tacky arrhythmia
Chronic conditions affecting care: HTN
Acute Exacerbation and/or Progression of Chronic Illness: HTN
*Radiology
Radiology exam reviewed: preliminary read by ED provider
*Pulse Oximetry
SaO2: 96
Patient hypoxic: no
*EKG
Interpreted by ED Provider?: Yes
Interpretation: abnormal
Comparison EKG: no comparison EKG present
Heart Rate: 156
Rate: tachycardiac
Rhythm: a-fib
Ischemia: non-specific ST changes
*Mortgage Counselor Interpretation
Rate: tachycardiac
Interpretation: abnormal
Heart Rate: 156
Rhythm: a-fib
*Critical Care Note
Total Time (30-74mins, 75-104mins- exclusive of procedures): 32
Update Note
Update Note:
9:30 AM update labs noted chest x-ray noted will replete potassium been on Cardizem still in rapid A-fib blood pressure improved will require admission as she is sent to cardiology and hospitalist
ED Attending Note
-
Portions of this chart may have been created with voice recognition software.� Occasional wrong word or��sound alike� substitutions may have occurred due to the inherent limitations of voice recognition software.
Discharge Plan
Departure
Patient Disposition: Admit
Date of Disposition: 04/04/25
Time of Disposition: 09:34
Admit to: Telemetry
Presentation/result/management discussed w/ accepting MD/DO: Hospitalist
Patient with high blood pressure during this ER visit?: No
Condition: Fair
Discharge Problem:
Atrial fibrillation with RVR
Interventions
Interventions:
*Risk Screen - Suicide Last Done: 04/04/25 07:16
*General Assessment Last Done: 04/04/25 07:16
*Neglect/Abuse Screening Last Done: 04/04/25 07:16
*ED- Fall Risk Assessment Last Done: 04/04/25 07:16
*ED COVID-19 Vaccine History Last Done: 04/04/25 07:16
*ED Influenza Vaccine History Last Done: 04/04/25 07:16
ED- Cardiac Assessment Last Done: 04/04/25 07:16
[2025-04-04 07:24] LABS: Hematocrit 39.5 % (37.0-47.0); Hemoglobin 13.2 g/dL (12.0-16.0); Mean Corp Hgb Conc. 33.4 g/dL (33.0-37.0); Mean Corpuscular Volume 89.4 fL (81.0-99.0); Nucleated Red Blood Cells % 0 %; Platelet Count 216 10^3/uL (130-400); Red Cell Dist. Width 13.2 % (11.5-14.5)
[2025-04-04 07:43] LABS: COVID-19 Antigen Negative (Negative)
[2025-04-04 07:44] LABS: ALT (SGPT) 129 U/L (0-35); AST (SGOT) 169 U/L (14-36); Albumin 3.8 g/dl (3.5-5.0); Alkaline Phosphatase 126 U/L (38-126); Blood Urea Nitrogen 13 mg/dl (7-17); Calcium 9.1 mg/dl (8.4-10.2); Carbon Dioxide 20 mmol/L (22-30); Chloride 108 mmol/L (98-107); Estimated Creatinine Clearance 44 ml/min; Glucose 124 mg/dl (70-99); Magnesium 1.9 mg/dl (1.6-2.3); Potassium 3.7 mmol/L (3.5-5.1); Sodium 136 mmol/L (135-145); Total Protein 6.1 g/dl (6.3-8.2); eGFR 52.40
[2025-04-04 07:49] LABS: Lipase 100 U/L (23-300)
[2025-04-04 07:55] LABS: Troponin I 0.016 ng/ml
[2025-04-04] MEDS: PROTONIX IV 40 MG IV (08:01)
[2025-04-04] MEDS: NSS 1000 IV ×2 (08:02→10:47)
[2025-04-04] MEDS: ZOFRAN 4 MG IV (08:02)
[2025-04-04] MEDS: CARDIZEM 10 MG IV (08:54)
[2025-04-04] MEDS: CARDIZEM 125 IV (08:55)
[2025-04-04] MEDS: KCL 270 MEQ IV (09:05)
--- NOTE | 2025-04-04 09:23 | HPS.HSE ---
Family Physician
-
Family Physician: Nj Sandra
Chief Complaint
-
palpitations
History of Present Illness
Patient is 75 years old female history of paroxysmal atrial tachycardia, CHF, hypertension, hyperlipidemia, GERD, anxiety presented to the hospital with palpitations and nausea vomiting and diarrhea. Patient has been ill over the last 3 days with
nausea vomiting and watery diarrhea multiple times throughout the day and she has not been able to eat and drink much. Today she was feeling some palpitations and chest discomfort and decided to come to the hospital. She also reports she had a
recent urinary tract infection and has been treated with antibiotics. In the ER she was noted to be in A-fib with rapid ventricular response and blood pressure borderline low. She was started on Cardizem drip and heart rate still high but much
improved. Patient also was given some Protonix and Zofran. She also received some IV fluids. Patient was referred to hospitalist service for further evaluation.
Medical History
Past Medical History
Past Medical History: Reports Other (paroxysmal atrial tachycardia, CHF, hypertension, hyperlipidemia, GERD, anxiety )
Past Surgical History: Reports None
Social History
Tobacco: Non-smoker
Alcohol: None
Drug: None
Family History
Family History: Not pertinent
Allergies / Home Medications
Allergies reflects when Allergies were last updated in [facility].
Home Medications with original date entered in [facility]
Allergy/Medication List:
Allergies
Allergy/AdvReac Type Severity Reaction Status Date / Time
Sulfa (Sulfonamide Allergy Mild Unknown Verified 04/30/24 13:18
Antibiotics)
Home Medications
aspirin 81 mg chewable tablet 81 mg PO DAILY 10/15/23
buspirone 7.5 mg tablet 7.5 mg PO BID 10/15/23
cholecalciferol (vitamin D3) 25 mcg (1,000 unit) tablet (Vitamin D3) 25 mcg PO DAILY 10/15/23
cyanocobalamin (vitamin B-12) 100 mcg tablet (Vitamin B-12) 100 mcg PO DAILY 10/15/23
doxylamine succinate 25 mg tablet (Sleep Aid (doxylamine)) 25 mg PO HS sleep 10/15/23
lisinopril 5 mg tablet 5 mg PO HS 10/15/23
metoprolol succinate 25 mg tablet,extended release 24 hr 25 mg PO DAILY 10/15/23
topiramate 25 mg tablet 25 mg PO BID 10/15/23
estradiol 0.01% (0.1 mg/gram) vaginal cream 1 g vaginal .2-3XWEEKLY 04/30/24
loperamide 1 mg/7.5 mL oral liquid (Imodium A-D) 4 mg PO DAILYPRN PRN diarrhea 04/30/24
Review of Systems
-
A 12 point ROS was completed and negative except as noted: Yes
Physical Exam
Vital Signs
Vital Signs
Temp Pulse Resp BP Pulse Ox
99.0 F 157 20 110/92 96
04/04/25 07:16 04/04/25 08:54 04/04/25 07:16 04/04/25 08:54 04/04/25 07:23
Physical exam:
General: Acutely ill
HEENT: Normocephalic, Atraumatic and Moist Mucous Membranes
Respiratory: Clear to Auscultation; Negative Wheezes, Rales or Rhonchi
Cardiac: Irregular rate and rhythm, tachycardic, S1-S2, no murmurs appreciated rubs or gallops
GI: Soft, Nontender and Nondistended
Musculoskeletal: No Clubbing, No Cyanosis and No Edema
Neuro: Awake, Alert and Oriented, no neurological deficit
Psych: Calm
Physical Exam
General: Other
Laboratory Results
-
04/04/25 07:11
04/04/25 07:11
Laboratory Results
Total Bilirubin 0.6 mg/dl (0.2-1.3) 04/04/25 07:11
AST 169 U/L (14-36) H 04/04/25 07:11
ALT 129 U/L (0-35) H 04/04/25 07:11
Alkaline Phosphatase 126 U/L (38-126) 04/04/25 07:11
Troponin I 0.016 ng/ml 04/04/25 07:11
Lipase 100 U/L (23-300) 04/04/25 07:11
Data Reviewed
-
Diagnostic Radiology: Image Personally Visualized and interpreted
Lab Data: Labs Reviewed by me
Impression/Plan
-
IMPRESSION:
Patient is 75 years old female with multiple comorbidities came into the hospital with nausea vomiting diarrhea and palpitations and found to be in A-fib rapid trickle response. Patient at increased risk of morbidity and mortality due to acute
presentation and comorbidities therefore she will need to be seen in the hospital treated accordingly and monitor for progress.
PLAN:
New onset atrial fibrillation with rapid ventricular response:
Continue IV Cardizem drip
Start IV heparin drip
Cardiac monitoring
Check thyroid function tests
Cardiology consult-discussed with cardiology via [place] text
Nausea vomiting and diarrhea:
Could be acute viral gastroenteritis but needs to rule out C. difficile in the setting of recent antibiotic use and also rule out bacterial infection.
Supportive care
Stool studies
Chronic HFpEF:
Hypovolemic on exam
Monitor daily weights volume status and ins and outs
Paroxysmal atrial tachycardia:
Already on beta-blockers for it
Hyperlipidemia:
Has not tolerated statins or Zetia
DVT prophylaxis:
Heparin drip
CODE STATUS:
Full code
Time spent 75 minutes
--- NOTE | 2025-04-04 10:21 | EDRN ---
cardiology currently at the pts bedside
--- NOTE | 2025-04-04 10:48 | CON.CAR ---
Addendum entered and electronically signed by Jacquelyn Hdz MD 04/04/25 13:01:
I saw and evaluated the patient, and I provided the substantive portion of the medical decision making.
I reviewed and agree with the note by Darling Watson and it accurately reflects our care.
I personally performed the medical decision making of the this encounter and my assessment and plan is below:
75-year-old female with past medical history of paroxysmal atrial tachycardia, chronic HFpEF, hyperlipidemia hypertension and anxiety followed by Dr. Chahal presented for evaluation of 3 days of nausea, vomiting and diarrhea. She tried to take her
medications but has not been able to keep anything down for the last 3 days. Upon arrival she was noted to be in atrial fibrillation with rapid ventricular response. She has no sense of palpitations. She does have a chest pressure in the
epigastric lower chest area that started after she began vomiting.
On exam, she is in no apparent distress with a regular rate and rhythm normal S1-S2 no murmur rubs or gallops were appreciated lungs had a fibrotic sounding rales at the right base, no wheezes or rhonchi. Abdomen soft nontender, extremities warm
and well-perfused.
EKG tracing showed atrial fibrillation with rapid ventricular response with nonspecific ST-T wave changes. interior systems carpenter shows conversion to sinus rhythm in the 70s. Blood pressure has been low normal while on diltiazem drip.
Labs show hemoglobin 11.9 BUN 13 creatinine 1.1 AST 0.016 proBNP 688 chest x-ray without any pulmonary edema
Assessment:
PAF: New diagnosis, now back in sinus rhythm. Would resume her p.o. metoprolol at 25 mg once able to tolerate p.o. CHADS2 Vascor is a 5, for now using IV heparin given her n.p.o. status. Her has atrial fibrillation and takes Xarelto as it
is the most cost effective DOAC. Would start Xarelto 20 mg p.o. daily once taking p.o. again. If she remains inpatient on Sunday could update her echocardiogram however would not keep in the hospital solely for this as it could be done as an
outpatient.
GI illness: Likely was not absorbing medications during her episodes of nausea and vomiting. Still remains NPO. Care as per hospitalist.
HFpEF: Chronic has not been eating or drinking for 3 days, weight is down. Does not appear to be hypervolemic. Follow-up with Dr. Chahal for further optimization of GDMT.
Hyperlipidemia reports statin induced and now Zetia induced myalgias. Follow-up as outpatient.
No further cardiovascular recommendations. Will sign off for now. Please call back with questions. She should keep her appointment with Dr. Chahal on 04/17/2025 as previously scheduled.
Recommendations discussed with Dr. Hernandez.
Original Note:
Consultation
Consultation Request
Date/Time Consultation Requested: 04/04/25 9:30a
Date/Time Consultation Performed: 04/04/25 10:30a
Requesting Provider: Dr. Hernandez
Performing Provider: MIS Cee for Dr. Hdz
Reason for Consultation: rapid Afib
Medical History
-
Chief Complaint: nausea/vomiting
History of Present Illness:
Mrs. Rosas is a 75 yo female (known to Dr. Chahal) with paroxysmal atrial tachycardia, chronic HFpEF, HLD, HTN, GERD, and anxiety, who presents to the ER with c/o nausea, vomiting and diarrhea for 3 days. She admits to not eating or drinking at all,
but has been taking her meds (likely not absorbed). EKG with rapid Afib which is new for her, we are consulted for new rapid Afib. She admits to feeling racing heart yesterday and epigastric/chest tightness that has now resolved after IV Protonix
and Zofran. BP is soft, she did receive IVF.
Past Medical History
Past Medical History: Other (as above)
Social History
Tobacco: Non-Smoker
Alcohol: None
Personal:
Living: With Family
Family History
Family History: Reviewed & Not Pertinent
Allergies / Home Medications
Allergy/AdvReac Type Severity Reaction Status Date / Time
Sulfa (Sulfonamide Allergy Mild Unknown Verified 04/30/24 13:18
Antibiotics)
�Medication �Instructions �Recorded �Confirmed �Type
aspirin 81 mg chewable tablet 81 mg PO DAILY 10/15/23 04/04/25 History
buspirone 7.5 mg tablet 7.5 mg PO BID 10/15/23 04/04/25 History
cholecalciferol (vitamin D3) 25 25 mcg PO DAILY 10/15/23 04/04/25 History
mcg (1,000 unit) tablet (Vitamin
D3)
cyanocobalamin (vitamin B-12) 100 100 mcg PO DAILY 10/15/23 04/04/25 History
mcg tablet (Vitamin B-12)
doxylamine succinate 25 mg tablet 25 mg PO HS sleep 10/15/23 04/04/25 History
(Sleep Aid (doxylamine))
lisinopril 5 mg tablet 5 mg PO HS 10/15/23 04/04/25 History
metoprolol succinate 25 mg 25 mg PO DAILY 10/15/23 04/04/25 History
tablet,extended release 24 hr
topiramate 25 mg tablet 25 mg PO BID 10/15/23 04/04/25 History
estradiol 0.01% (0.1 mg/gram) 1 g vaginal .2-3XWEEKLY 04/30/24 04/04/25 History
vaginal cream
loperamide 1 mg/7.5 mL oral liquid 4 mg PO DAILYPRN PRN diarrhea 04/30/24 04/04/25 History
(Imodium A-D)
Review of Systems
-
History Source: Patient
All other systems: Negative unless noted
Physical Exam
Vital Signs
Temp Pulse Resp BP Pulse Ox
99.0 F 157 20 110/92 96
04/04/25 07:16 04/04/25 08:54 04/04/25 07:16 04/04/25 08:54 04/04/25 07:23
Lab Results
04/04/25 07:11
04/04/25 07:11
Troponin I 0.016 ng/ml 04/04/25 07:11
Kop-E-Ewomfulvlhu Pept 688 pg/ml 04/04/25 07:11
Physical Exam
General: Well Developed, Well Nourished and No Apparent Distress
HEENT: Normocephalic and Moist Mucous Membranes
Respiratory: Clear and Non Labored Respirations
Cardiac: S1/S2 and Irregular Rhythm (tachycardia)
Breast: Deferred by me
GI: Soft, Normal Bowel Sounds and Tender (mild diffuse )
Rectal: Deferred by Provider
Musculoskeletal: No Clubbing, No Cyanosis and No Edema
Skin: Warm and Dry
Neuro: AO x 3
Psych: Calm
Impression / Plan
-
Afib - new onset, duration unknown.
- rapid ventricular response up to 140 bpm.
- IV Diltiazem bolus and now drip with improved rates.
- takes Toprol 25mg daily usually but has been vomiting for 3 days.
- felt heart racing this am.
- IV Heparin for now.
- [id number] score is 5 (age, female, HTN, CHF).
- agreeable to OAC, she mentioned Xarelto because her is on it.
GI illness - hypovolemic from vomiting/diarrhea x 3 days.
- continue IVF.
- per hospitalist.
H/o Atach - paroxysmal.
- new Afib as above.
HFpEF - chronic, stable.
HLD - leg myalgias on Crestor so stopped it last month and myalgias resolved.
- started Zetia 03/03/25 and developed legs myalgias so stopped it.
Data Reviewed
-
EKG: Tracing Personally Visualized and interpreted (Afib 140 bpm)
Labs: Labs Reviewed by me
Old Records: Reviewed
[2025-04-04] MEDS: HEPARIN 25000 UNITS/250 ML IV (12:01)
[2025-04-04] MEDS: HEPARIN 4000 UNITS IV (12:04)
[2025-04-04 12:09] LABS: Hematocrit 34.5 % (37.0-47.0); Hemoglobin 11.9 g/dL (12.0-16.0); Mean Corp Hgb Conc. 34.5 g/dL (33.0-37.0); Mean Corpuscular Volume 90.6 fL (81.0-99.0); Platelet Count 191 10^3/uL (130-400); Red Cell Dist. Width 13.2 % (11.5-14.5)
[2025-04-04 12:17] LABS: APTT 28.6 Sec (23.4-35.0)
--- NOTE | 2025-04-04 12:44 | EDRN ---
this RN completed admission for the pt and verified home medication reconciliation with the pt, this RN noticed that the pts HR came down to the 70's and appeared to convert to NSR, this RN notified Dr. Hernandez, an EKG was ordered and down grade
orders were placed
--- NOTE | 2025-04-04 14:11 | EDRN ---
this RN called the receiving unit and notified them that paper report was going to be tubed up
--- NOTE | 2025-04-04 14:26 | CM ---
Patient seen at bedside in ED. Patient states that she lives with her in a 2 story home in a [place] community with a first floor set up. Patient PCP is Dr. Sandra and she uses the [facility] in [place]. Patient stated that she has had no home
health in the past, has a CPAP from [facility] and is independent of ADL's and IADL's. Patient does not anticipate any needs at discharge. CM will continue to follow for discharge planning needs.
Plan;home with no needs vs home with Vn pending medical treatment plan
[2025-04-04] MEDS: NSS (PRESERVATIVE FREE) IV (16:32)
[2025-04-04] MEDS: PROTONIX IV IV (16:32)
--- NOTE | 2025-04-04 17:49 | PTCARENOTE ---
[facility] 1615 pt arrived from ED to room 420. Assessment done. Pt SR on monitor with pacs. Vitals stable. Heparin drip running at 900 units per hour. Next PTT due at 1800. Pt with no c/o at this time. Will order dinner.
[2025-04-04 18:38] LABS: APTT 39.8 Sec (23.4-35.0)
[2025-04-04] MEDS: BUSPAR 7.5 MG PO (21:06)
[2025-04-04] MEDS: TOPAMAX 25 MG PO (21:07)
[2025-04-04] MEDS: TESSALON PERLES 100 MG PO (22:24)
[2025-04-05 01:20] LABS: APTT 56.4 Sec (23.4-35.0)
[2025-04-05 03:49] VITALS: BP 129/77
[2025-04-05 06:00] VITALS: BMI 29.2
[2025-04-05 07:00] VITALS: BP 114/66
[2025-04-05 07:56] LABS: Hematocrit 37.0 % (37.0-47.0); Hemoglobin 12.5 g/dL (12.0-16.0); Mean Corp Hgb Conc. 33.8 g/dL (33.0-37.0); Mean Corpuscular Volume 88.7 fL (81.0-99.0); Platelet Count 215 10^3/uL (130-400); Red Cell Dist. Width 13.2 % (11.5-14.5)
[2025-04-05 08:03] LABS: APTT 115.5 Sec (23.4-35.0)
[2025-04-05 08:33] LABS: ALT (SGPT) 108 U/L (0-35); AST (SGOT) 76 U/L (14-36); Albumin 3.4 g/dl (3.5-5.0); Alkaline Phosphatase 129 U/L (38-126); Blood Urea Nitrogen 10 mg/dl (7-17); Calcium 8.9 mg/dl (8.4-10.2); Carbon Dioxide 20 mmol/L (22-30); Chloride 112 mmol/L (98-107); Estimated Creatinine Clearance 70 ml/min; Glucose 99 mg/dl (70-99); Magnesium 2.1 mg/dl (1.6-2.3); Potassium 4.4 mmol/L (3.5-5.1); Total Protein 5.7 g/dl (6.3-8.2); eGFR > 60.00
[2025-04-05] MEDS: XARELTO 20 MG PO (09:27)
[2025-04-05] MEDS: BUSPAR 7.5 MG PO (09:28)
[2025-04-05] MEDS: VITAMIN D3 (cholecalciferol) 25 MCG PO (09:29)
[2025-04-05] MEDS: TOPROL XL 25 MG PO (09:29)
[2025-04-05] MEDS: PROTONIX IV 40 MG IV (09:30)
[2025-04-05] MEDS: NSS (PRESERVATIVE FREE) 10 ML IV (09:30)
[2025-04-05] MEDS: TOPAMAX 25 MG PO (09:34)
[2025-04-05 09:56] LABS: Sodium 136 mmol/L (135-145)
[2025-04-05] MEDS: VITAMIN B-12 100 MCG PO (10:02)
[2025-04-05 11:00] VITALS: BP 106/64
[2025-04-05 12:24] VITALS: BMI 29.2
--- NOTE | 2025-04-05 14:31 | W.PN.HOSP.TC ---
Today's Communication/Plan
-
Discharge planning today
Assessment / Plan
Assessment / Plan
Physical exam:
General: Well Developed, Well Nourished and No Apparent Distress
HEENT: Normocephalic, Atraumatic and Moist Mucous Membranes
Respiratory: Clear to Auscultation; Negative Wheezes, Rales or Rhonchi
Cardiac: Regular Rhythm and S1/S2
GI: Soft, Nontender and Nondistended
Musculoskeletal: No Clubbing, No Cyanosis and No Edema
Neuro: Awake, Alert and Oriented
Psych: Calm
A/P:
New onset atrial fibrillation with rapid ventricular response:
Back on oral Toprol-XL
Change heparin drip to Xarelto
Cardiology consult appreciated and they are okay with her being discharged and follow-up outpatient
Nausea vomiting and diarrhea:
No further diarrhea so discontinue stool studies
Abdominal discomfort:
Was planning on doing an upper GI series but they do not do it over the weekend after discussion with radiology
Started on PPI twice daily for now and if symptoms persist can do upper GI series as outpatient and or GI referral
Chronic HFpEF:
Hypovolemic on exam
Monitor daily weights volume status and ins and outs
Paroxysmal atrial tachycardia:
Already on beta-blockers for it
Hyperlipidemia:
Has not tolerated statins or Zetia
DVT prophylaxis:
Heparin drip
CODE STATUS:
Full code
Anticipated Discharge: Today
Subjective/Interval History
-
Date of Service: April 05, 2025
Patient feels better overall. No chest pain or shortness of breath. No palpitations. She does complain of mild epigastric discomfort when she eats.
Objective Data
-
Labs:
Laboratory Results
04/05/25
07:42
WBC 6.7
Hgb 12.5
Hct 37.0
Plt Count 215
APTT 115.5 H
Sodium 136
Potassium 4.4
Chloride 112 H
Carbon Dioxide 20 L
BUN 10
Creatinine 0.7
Glucose 99
Calcium 8.9
Total Bilirubin 0.3
AST 76 H
ALT 108 H
Alkaline Phosphatase 129 H
Vital Signs:
Vital Signs
Temp Pulse Resp BP Pulse Ox
97.7 F 77 18 106/64 95
04/05/25 11:00 04/05/25 11:00 04/05/25 11:00 04/05/25 11:00 04/05/25 11:00
I&O
04/04/25 04/05/25 04/06/25
06:59 06:59 06:59
Intake Total 240 / 240
Balance 240 / 240
--- NOTE | 2025-04-05 14:35 | W.DCSUMMARY ---
Discharge Summary
Discharge Data
Date of Admission: 04/04/25
Date of Discharge: 04/05/25
Total time spent discharging patient (in min): 35
-
Pending Results: No
Hospital Course
Patient is 75 years old female with history of paroxysmal atrial tachycardia, CHF, hypertension, hyperlipidemia, GERD, anxiety, came into the hospital nausea vomiting diarrhea and palpitations and found to be in A-fib. Patient was placed on heparin
drip, Cardizem drip, and supportive care was given. She had received IV fluids in the ED but fluid stopped and encouraged her oral intake and she was able to tolerate. Her Cardizem drip was discontinued and she was switched to her oral Toprol that
she has been tolerated well. Her TEETEE inhibitor has been placed on hold due to relative hypotension and recommended to continue to hold for several more days and restart as outpatient. Patient thyroid function test was normal. Cardiology
consulted. Cardiology recommended anticoagulation with Xarelto and recommended echocardiogram as outpatient. Cardiology also cleared her for discharge from their cardiac standpoint. Patient converted to normal sinus rhythm and improved earlier
than expected. She was going to have stool study tests but her diarrhea resolved so she did not require any further testing. She did have some gastric discomfort that was felt to be related to current illness and she was placed on PPI. There was
discussion about doing an upper GI series and seeing GI as outpatient if symptoms persist and she and family are agreeable with this plan. She participated with PT and she does not need any therapy needs upon discharge. Otherwise, patient is
hemodynamically stable, able to tolerate food intake and medications, afebrile, and remains in normal sinus rhythm. She will be discharged in relatively stable condition today.
Discharge duration: 35 minutes
Discharge Plan
-
Patient Disposition: Home (Routine Discharge)
Discharge Diagnosis/Procedures: New onset atrial fibrillation. Acute gastroenteritis. Acute gastritis/esophagitis.
Diet: Low Fat, Low Cholesterol and 2 Gram Sodium
Activity: As tolerated
Blood Work: Please PCP to order CBC, BMP within 1 week
Specialty Instructions: Weigh Daily- Call MD for wt gain/loss 3 lbs overnight/5 lbs in 1 week
Referrals:
Waldemar Chahal MD [Active, Cardiology] - in one to two weeks
Nj Sandra MD [Family Provider, Family Practice] - in less than 1 week
Additional Discharge Medication Instructions: PCP to order upper GI series as outpatient and consider GI evaluation as outpatient as well if GI symptoms persist.
Prescriptions:
New
pantoprazole 40 mg Tablet,Delayed Release (Dr/Ec)
40 mg PO BID 30 Days Qty: 60 0RF
Xarelto 20 mg Tablet
20 mg PO QPM 30 Days Qty: 30 0RF
Continued
metoprolol succinate 25 mg Tablet Extended Release 24 Hr
25 mg PO DAILY
aspirin 81 mg Tablet,Chewable
81 mg PO DAILY
buspirone 7.5 mg Tablet
7.5 mg PO BID
topiramate 25 mg Tablet
25 mg PO BID
Sleep Aid (doxylamine) 25 mg Tablet
25 mg PO HS
cholecalciferol (vitamin D3) [Vitamin D3] 25 mcg (1,000 unit) Tablet
25 mcg PO DAILY
cyanocobalamin (vitamin B-12) [Vitamin B-12] 100 mcg Tablet
100 mcg PO DAILY
estradiol 0.01 % (0.1 mg/gram) Cream
1 g VAGINAL .2-3XWEEKLY
Patient Comments:
04/30/24: Patient has no set schedule, tries to do it 2-3 times a week.
loperamide [Imodium A-D] 1 mg/7.5 mL Liquid
4 mg PO DAILYPRN PRN (Reason: diarrhea)
Held
lisinopril 5 mg Tablet
5 mg PO HS
Hold Instructions: Resume on 04/13/25.
Discharge Orders:
Discharge Patient (As Directed); Ordered 04/05/25
Ordered By: Timothy Hernandez
Discharge Date and Time
Print Language: BELGIAN
--- NOTE | 2025-04-05 14:50 | CM ---
Met with patient at bedside; will provide transport home
Per Attending's request, provided patient with a Xarelto coupon for 30 day free trial
Plan: Discharge to home; no needs
[2025-04-05 15:00] VITALS: BP 117/62
== END 2025-04-05 16:40 | disposition home or self-care (01) | DRG 392 ==
LOC: 4 WEST ACU 09:37
PROVIDERS: ADMITTING PHYSICIAN Hospitalist; CONSULT PHYSICIAN Internal Medicine Cardiovascular Disease; EMERGENCY PHYSICIAN Emergency Medicine; FAMILY PHYSICIAN Family Medicine
DX: K52.9 Noninfective gastroenteritis and colitis, unspecified (principal); I50.32 Chronic diastolic (congestive) heart failure; I47.19 Other supraventricular tachycardia; E86.1 Hypovolemia; K29.00 Acute gastritis without bleeding; I11.0 Hypertensive heart disease with heart failure; K21.00 Gastro-esophageal reflux disease with esophagitis, without bleeding; F41.9 Anxiety disorder, unspecified; I48.0 Paroxysmal atrial fibrillation; E78.5 Hyperlipidemia, unspecified; Z88.2 Allergy status to sulfonamides; Z79.82 Long term (current) use of aspirin; Z79.899 Other long term (current) drug therapy; Z11.52 Encounter for screening for COVID-19
CPT/HCPCS: 71046; 80053; 82248; 83690; 83735; 83880; 84443; 84484; 85025; 85027; 85730; 87502; 87811; 93005; 96361; 96365; 96366; 96367; 96375; 97162; 97166; 99291

== ENCOUNTER → 2025-05-04 09:13 | Outpatient (REF) | payer MEDICARE, OTHER, SELFPAY | LOC: HWRCS 09:13 | PROVIDERS: ATTENDING PHYSICIAN Internal Medicine; FAMILY PHYSICIAN Family Medicine | DX: I48.0 Paroxysmal atrial fibrillation (principal); I50.32 Chronic diastolic (congestive) heart failure; I49.1 Atrial premature depolarization; R07.9 Chest pain, unspecified | CPT/HCPCS: 93306 ==

== ENCOUNTER → 2025-06-09 09:08 | Outpatient (REF) | payer MEDICARE, OTHER, SELFPAY | LOC: RAD 09:08 | PROVIDERS: ATTENDING PHYSICIAN Student in an Organized Health Care Education/Training Program; FAMILY PHYSICIAN Family Medicine | DX: R07.89 Other chest pain (principal) | CPT/HCPCS: 71101 ==